=== PATIENT | female | born 1970 | race Hispanic/Latino ===

== ENCOUNTER 2018-01-27 14:56 | Emergency (ER) | payer MEDICAID, OTHER | END 2018-01-27 17:21 | disposition home or self-care (01) | LOC: EDH 14:56 | DX: K02.9 Dental caries, unspecified (principal); E11.9 Type 2 diabetes mellitus without complications; Z91.012 Allergy to eggs | CPT/HCPCS: 99281 ==

== ENCOUNTER 2020-09-23 14:16 | Emergency (ER) | payer OTHER ==
[2020-09-23 14:55] LABS: BASOPHILS % (AUTO) 0.3 % (0.0-5.0); EOSINOPHILS % (AUTO) 2.8 % (0.0-8.0); HEMATOCRIT 38.3 % (36-48); LYMPHOCYTES % (AUTO) 28.3 % (21.0-51.0); MEAN CORPUSCULAR HEMOGLOBIN 30.3 pg (27.0-33.0); MEAN CORPUSCULAR HGB CONC 32.9 g/dL (32.0-36.0); MEAN CORPUSCULAR VOLUME 92.1 fL (79-99); MONOCYTES % (AUTO) 5.9 % (3.0-13.0); NEUTROPHILS % (AUTO) 62.1 % (40.0-77.0); PLATELET COUNT (AUTO) 271 K/uL (130-400); RED BLOOD CELL COUNT(AUTO) 4.16 MIL/uL (4.00-5.50); RED CELL DISTRIBUTION WIDTH 13.6 % (11.0-15.5); WHITE BLOOD COUNT (AUTO) 7.1 K/uL (4.8-10.8)
[2020-09-23] MEDS ORDERED: ASPIRIN 325 MG TABLET ONE (14:56)
[2020-09-23 15:11] LABS: INR 0.92 (0.85-1.15); PROTHROMBIN TIME 9.9 SEC (9.6-11.6)
[2020-09-23 15:12] LABS: ALBUMIN 3.4 g/dL (3.5-5.0); CREATININE 1.1 mg/dL (0.5-1.5); POTASSIUM 4.6 mmol/L (3.5-5.1)
[2020-09-23 15:34] LABS: APPEARANCE,URINE Clear (CLEAR); BILIRUBIN,URINE Negative (NEGATIVE); COLOR,URINE Yellow (YELLOW); GLUCOSE, URINE (UA) >=1000 mg/dL (NEGATIVE); KETONES,URINE Negative (NEGATIVE); LEUKOCYTE ESTERASE ,URINE Trace (NEGATIVE); NITRATE,URINE Negative (NEGATIVE); OCCULT BLOOD,URINE Nonhemolyzed Trace (NEGATIVE); PH,URINE 6.5 (5.0-8.0); PROTEIN,URINE Negative (NEGATIVE)
[2020-09-23 15:37] LABS: BILIRUBIN,TOTAL 0.3 mg/dL (0.2-1.0); TOTAL PROTEIN, SERUM 7.3 g/dL (6.0-8.3)
[2020-09-23 16:04] LABS: BACTERIA,URINE Few /HPF (None Seen)
[2020-09-23 16:05] LABS: SQUAMOUS EPITHELIAL CELL,UR 0-2 /HPF (0-2)
[2020-09-23] MEDS ORDERED: SODIUM CHLORIDE 0.9% 1000ML 1,000 ML IV ONE (16:42)
== END 2020-09-23 18:46 | disposition home or self-care (01) ==
LOC: EDH 14:16
DX: E11.65 Type 2 diabetes mellitus with hyperglycemia (principal); R07.89 Other chest pain; E11.9 Type 2 diabetes mellitus without complications; Z91.012 Allergy to eggs
CPT/HCPCS: 36415; 71045; 80053; 81001; 82550; 82948; 84484; 85025; 85610; 85730; 93005; 96360; 99285; J7030

== ENCOUNTER 2022-01-17 21:47 | Emergency (ER) | payer MEDICAID, OTHER ==
[~2022-01-17] VITALS: Ht 160 cm; Wt 86.6 kg
[2022-01-17 22:17] LABS: BASOPHILS % (AUTO) 0.2 % (0.0-5.0); EOSINOPHILS % (AUTO) 2.1 % (0.0-8.0); HEMATOCRIT 36.8 % (36-48); LYMPHOCYTES % (AUTO) 22.7 % (21.0-51.0); MEAN CORPUSCULAR HEMOGLOBIN 30.1 pg (27.0-33.0); MEAN CORPUSCULAR VOLUME 88.7 fL (79-99); MONOCYTES % (AUTO) 6.4 % (3.0-13.0); NEUTROPHILS % (AUTO) 68.4 % (40.0-77.0); PLATELET COUNT (AUTO) 266 K/uL (130-400); RED BLOOD CELL COUNT(AUTO) 4.15 MIL/uL (4.00-5.50); RED CELL DISTRIBUTION WIDTH 13.5 % (11.0-15.5); WHITE BLOOD COUNT (AUTO) 8.1 K/uL (4.8-10.8)
[2022-01-17 22:30] LABS: CREATININE 0.7 mg/dL (0.5-1.5); POTASSIUM 3.9 mmol/L (3.5-5.1)
[2022-01-17 22:35] LABS: ALBUMIN 3.6 g/dL (3.5-5.0); BILIRUBIN,TOTAL 0.3 mg/dL (0.2-1.0); TOTAL PROTEIN, SERUM 7.9 g/dL (6.0-8.3)
[2022-01-17] MEDS ORDERED: D-ME1POW16 PO (22:39)
[2022-01-17] MEDS ORDERED: ACETAMINOPHEN 500 MG TABLET PO ONE (23:00)
[2022-01-17] MEDS ORDERED: 0.9%NACL 1000ML 1,000 ML IV SCH (23:00)
[2022-01-17] MEDS ORDERED: INSULIN HUMULIN R 100 UNIT/ML 3ML SQ ONE (23:00)
[2022-01-17 23:29] VITALS: BP 112/64
== END 2022-01-18 00:15 | disposition home or self-care (01) ==
LOC: EDH 21:47
DX: B34.9 Viral infection, unspecified (principal); E11.9 Type 2 diabetes mellitus without complications; E66.9 Obesity, unspecified; Z68.33 Body mass index [BMI] 33.0-33.9, adult; Z20.822 Contact with and (suspected) exposure to COVID-19; Z91.012 Allergy to eggs
CPT/HCPCS: 36415; 71045; 80053; 85025; 87635; 87804 ×2; 87880; 93005; 96360; 96372; 99285; C9803; J1815; J7030

== ENCOUNTER 2022-10-21 20:59 | Emergency (ER) | payer MEDICAID, OTHER ==
[~2022-10-21] VITALS: Ht 147.3 cm; Wt 87.5 kg
[~2022-10-21 20:59] MED LIST: D-ME1POW16 PO
[2022-10-21] MEDS ORDERED: CEPH500B PO (22:40)
[2022-10-21] MEDS ORDERED: SULF1TAB42 PO (22:40)
[2022-10-21 23:18] VITALS: BP 119/70
== END 2022-10-21 23:20 | disposition home or self-care (01) ==
LOC: EDH 21:20
DX: L02.411 Cutaneous abscess of right axilla (principal); E11.9 Type 2 diabetes mellitus without complications; E66.9 Obesity, unspecified; Z98.890 Other specified postprocedural states; Z91.012 Allergy to eggs
CPT/HCPCS: 10060

== ENCOUNTER 2023-11-15 15:24 | Emergency (ER) | payer MEDICAID, OTHER ==
[~2023-11-15] VITALS: Ht 160 cm; Wt 73.0 kg
[~2023-11-15 15:24] MED LIST changes: +CEPH500B PO; +SULF1TAB42 PO
[2023-11-15 16:31] LABS: BASOPHILS # (AUTO) 0.02 K/uL (0.00-0.20); BASOPHILS % (AUTO) 0.3 % (0.0-5.0); EOSINOPHILS # (AUTO) 0.03 K/uL (0.00-0.70); EOSINOPHILS % (AUTO) 0.4 % (0.0-8.0); IMMATURE GRANULOCYTE ABSOLUTE 0.04 K/uL (0-1); MEAN CORPUSCULAR HEMOGLOBIN 28.9 pg (27.0-33.0); MEAN CORPUSCULAR HGB CONC 33.2 g/dL (32.0-36.0); MEAN CORPUSCULAR VOLUME 87.1 fL (79-99); MONOCYTES # (AUTO) 0.2 K/uL (0.1-1.0); MONOCYTES % (AUTO) 2.5 % (3.0-13.0); NEUTROPHILS # (AUTO) 6.1 K/uL (1.8-7.7); NEUTROPHILS % (AUTO) 83.3 % (40.0-77.0); PLATELET COUNT (AUTO) 246 K/uL (130-400); RED BLOOD CELL COUNT(AUTO) 4.25 MIL/uL (4.00-5.50); RED CELL DISTRIBUTION WIDTH 13.4 % (11.0-15.5); WHITE BLOOD COUNT (AUTO) 7.3 K/uL (4.8-10.8)
[2023-11-15 16:37] LABS: ADD UA MICROSCOPIC YES; APPEARANCE,URINE CLEAR (CLEAR); BILIRUBIN,URINE NEGATIVE (NEGATIVE); COLOR,URINE LIGHT-YELLOW (YELLOW); GLUCOSE, URINE (UA) >=1000 mg/dL (NEGATIVE); KETONES,URINE 20 mg/dL (NEGATIVE); LEUKOCYTE ESTERASE ,URINE NEGATIVE Leu/uL (NEGATIVE); NITRATE,URINE 2+ (NEGATIVE); OCCULT BLOOD,URINE NEGATIVE (NEGATIVE); PH,URINE 5.5 (5.0-8.0); PROTEIN,URINE NEGATIVE (NEGATIVE); UROBILINOGEN,URINE 0.2 mg/dL (0.2-1.0)
[2023-11-15 16:40] LABS: BACTERIA,URINE FEW /HPF (None Seen); MUCUS,URINE FEW LPF (None Seen); RBC,URINE 0-1 /HPF (0-1); SQUAMOUS EPITHELIAL CELL,UR FEW /HPF (0-2)
[2023-11-15 16:47] LABS: ALBUMIN 3.6 g/dL (3.5-5.0); BILIRUBIN,TOTAL 0.4 mg/dL (0.2-1.0); CREATININE 0.7 mg/dL (0.5-1.5); POTASSIUM 4.4 mmol/L (3.5-5.1); TOTAL PROTEIN, SERUM 7.7 g/dL (6.0-8.3)
[2023-11-15] MEDS: 0.9%NACL 1000ML 1,000 ML IV ONE ×2 (18:18→19:32)
[2023-11-15] MEDS: CEFTRIAXONE 1G VIAL IVPB SCH (19:32)
[2023-11-15] MEDS: INSULIN HUMULIN R 100 UNIT/ML 3ML IV ONE (19:32)
[2023-11-15] MEDS: KETOROLAC 15MG/ML VIAL (15MG/ML) IV ONE (19:32)
[2023-11-15] MEDS ORDERED: LIDOP TP (22:28)
[2023-11-15] MEDS ORDERED: CYCL-309 PO (22:28)
[2023-11-15] MEDS ORDERED: MACR100 PO (22:28)
[2023-11-15] MEDS ORDERED: IBUP-2077 PO (22:28)
[2023-11-15 22:52] VITALS: BP 132/54; PULSE 70; RESP 14; O2SAT 97
== END 2023-11-15 23:28 | disposition home or self-care (01) ==
LOC: EDH 15:24
DX: N39.0 Urinary tract infection, site not specified (principal); M54.32 Sciatica, left side; E11.65 Type 2 diabetes mellitus with hyperglycemia; I10 Essential (primary) hypertension; E78.00 Pure hypercholesterolemia, unspecified; Z79.899 Other long term (current) drug therapy; Z91.012 Allergy to eggs
CPT/HCPCS: 99285; 96365; 96375; 96361; 84484; 80053; 85025; 87077; 87088; 87186; 82948 ×3; 82010; 81001; 36415; 93005; J1815; J7030; J0696; J1885

== ENCOUNTER 2024-05-26 11:20 | Emergency (ER) | payer BC ==
[~2024-05-26] VITALS: Ht 160 cm; Wt 82.6 kg
[~2024-05-26 11:20] MED LIST changes: +CYCL-309 PO; +IBUP-2077 PO; +LIDOP TP; +MACR100 PO
[2024-05-26 12:46] LABS: BASOPHILS # (AUTO) 0.02 K/uL (0.00-0.20); BASOPHILS % (AUTO) 0.4 % (0.0-5.0); EOSINOPHILS # (AUTO) 0.29 K/uL (0.00-0.70); EOSINOPHILS % (AUTO) 5.2 % (0.0-8.0); HEMATOCRIT 37.9 % (36-48); IMMATURE GRANULOCYTE ABSOLUTE 0.03 K/uL (0-1); LYMPHOCYTES # (AUTO) 1.8 K/uL (1.0-4.8); LYMPHOCYTES % (AUTO) 31.3 % (21.0-51.0); MEAN CORPUSCULAR HEMOGLOBIN 28.8 pg (27.0-33.0); MEAN CORPUSCULAR HGB CONC 32.5 g/dL (32.0-36.0); MEAN CORPUSCULAR VOLUME 88.8 fL (79-99); MONOCYTES # (AUTO) 0.4 K/uL (0.1-1.0); MONOCYTES % (AUTO) 6.8 % (3.0-13.0); NEUTROPHILS # (AUTO) 3.1 K/uL (1.8-7.7); NEUTROPHILS % (AUTO) 55.8 % (40.0-77.0); PLATELET COUNT (AUTO) 321 K/uL (130-400); RED BLOOD CELL COUNT(AUTO) 4.27 MIL/uL (4.00-5.50); RED CELL DISTRIBUTION WIDTH 13.7 % (11.0-15.5); WHITE BLOOD COUNT (AUTO) 5.6 K/uL (4.8-10.8)
[2024-05-26 13:04] LABS: CREATININE 0.6 mg/dL (0.5-1.0); POTASSIUM 4.8 mmol/L (3.5-5.1)
[2024-05-26 13:08] LABS: ALBUMIN 3.4 g/dL (3.5-5.0); BILIRUBIN,TOTAL 0.3 mg/dL (0.2-1.0); TOTAL PROTEIN, SERUM 7.8 g/dL (6.0-8.3)
[2024-05-26] MEDS: ONDANSETRON 4MG INJ IVP ONE (14:48)
[2024-05-26] MEDS: 0.9%NACL 1000ML 1,000 ML IV ONE (14:48)
[2024-05-26] MEDS: KETOROLAC 30MG VIAL (30MG/ML) IVP ONE (14:49)
[2024-05-26] MEDS ORDERED: IOHEXOL 350 MG/ML 100ML INFUS..BTL IV ONE (15:17)
[2024-05-26] MEDS ORDERED: CLIN-141 PO (16:35)
[2024-05-26] MEDS ORDERED: IBUP-2077 PO (16:35)
[2024-05-26 17:16] VITALS: BP 147/71; PULSE 89; RESP 18; O2SAT 94
== END 2024-05-26 17:17 | disposition home or self-care (01) ==
LOC: EDH 11:20
DX: L03.311 Cellulitis of abdominal wall (principal); G89.18 Other acute postprocedural pain; R10.31 Right lower quadrant pain; E11.9 Type 2 diabetes mellitus without complications; E66.9 Obesity, unspecified; Z79.899 Other long term (current) drug therapy; Z91.012 Allergy to eggs; Z90.49 Acquired absence of other specified parts of digestive tract
CPT/HCPCS: 99284; 74177; 96374; 96375; 80053; 83690; 85025; 36415; J7030; J2405; J1885; Q9967

== ENCOUNTER 2024-10-02 18:09 | Emergency (ER) | payer SELFPAY ==
[~2024-10-02] VITALS: Ht 160 cm; Wt 81.6 kg
[~2024-10-02 18:09] MED LIST changes: +CLIN-141 PO
[2024-10-02 18:10] VITALS: BP 103/71; PULSE 83; RESP 20; TEMP 98.8
--- NOTE | 2024-10-02 18:52 | EKG ---
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
[2024-10-02 19:13] LABS: APPEARANCE,URINE CLEAR (CLEAR); BILIRUBIN,URINE NEGATIVE (NEGATIVE); COLOR,URINE LIGHT-YELLOW (YELLOW); GLUCOSE, URINE (UA) 300 mg/dL (NEGATIVE); KETONES,URINE NEGATIVE (NEGATIVE); LEUKOCYTE ESTERASE ,URINE NEGATIVE Leu/uL (NEGATIVE); NITRATE,URINE NEGATIVE (NEGATIVE); OCCULT BLOOD,URINE NEGATIVE (NEGATIVE); PH,URINE 6.5 (5.0-8.0); PROTEIN,URINE NEGATIVE (NEGATIVE)
[2024-10-02 19:18] LABS: BASOPHILS # (AUTO) 0.03 K/uL (0.00-0.20); BASOPHILS % (AUTO) 0.3 % (0.0-5.0); EOSINOPHILS # (AUTO) 0.55 K/uL (0.00-0.70); EOSINOPHILS % (AUTO) 6.3 % (0.0-8.0); HEMATOCRIT 33.3 % (36-48); IMMATURE GRANULOCYTE ABSOLUTE 0.04 K/uL (0-1); LYMPHOCYTES # (AUTO) 2.4 K/uL (1.0-4.8); LYMPHOCYTES % (AUTO) 27.4 % (21.0-51.0); MEAN CORPUSCULAR HEMOGLOBIN 29.2 pg (27.0-33.0); MEAN CORPUSCULAR HGB CONC 33.3 g/dL (32.0-36.0); MEAN CORPUSCULAR VOLUME 87.6 fL (79-99); MONOCYTES # (AUTO) 0.5 K/uL (0.1-1.0); MONOCYTES % (AUTO) 5.7 % (3.0-13.0); NEUTROPHILS # (AUTO) 5.3 K/uL (1.8-7.7); NEUTROPHILS % (AUTO) 59.8 % (40.0-77.0); PLATELET COUNT (AUTO) 271 K/uL (130-400); RED CELL DISTRIBUTION WIDTH 13.3 % (11.0-15.5); WHITE BLOOD COUNT (AUTO) 8.8 K/uL (4.8-10.8)
[2024-10-02 19:18] LABS: ADD UA MICROSCOPIC YES
[2024-10-02 19:23] LABS: BACTERIA,URINE FEW /HPF (None Seen); RBC,URINE 0-1 /HPF (0-1); SQUAMOUS EPITHELIAL CELL,UR RARE /HPF (0-2)
[2024-10-02 19:27] LABS: CARBON DIOXIDE 30 mmol/L (21-32); CHLORIDE 101 mmol/L (101-111); CREATININE 0.6 mg/dL (0.5-1.0); GLOMERULAR FILTR. RATE CALC 107 mL/min (>90); GLUCOSE,RANDOM 212 mg/dL (70-105); POTASSIUM 4.1 mmol/L (3.5-5.1); SODIUM SERUM 139 mmol/L (136-145); UREA NITROGEN, BLOOD 9 mg/dL (7-18)
[2024-10-02 19:31] LABS: ALANINE AMINOTRANSFERASE 29 U/L (12-78); ALBUMIN 3.3 g/dL (3.5-5.0); ASPARTATE AMINOTRANSFERASE 28 U/L (10-37); BILIRUBIN,DIRECT < 0.1 mg/dL (0.0-0.3); BILIRUBIN,TOTAL 0.2 mg/dL (0.2-1.0); TOTAL PROTEIN, SERUM 7.2 g/dL (6.0-8.3)
--- NOTE | 2024-10-02 20:58 | NUR ---
CT EXAM PENDING, PT IN LOBBY, NO IV, NO CONSENT
[2024-10-02] MEDS: ondanSETRON 4MG INJ IVP ONE (21:43)
[2024-10-02] MEDS: morPHINE 2 MG SYG IVP ONE (21:43)
[2024-10-02] MEDS ORDERED: IOHEXOL-350 75 ML VIAL IV ONE (21:58)
--- NOTE | 2024-10-02 22:26 | HMCIMG ---
CT ABDOMEN/PELVIS W/CONTRAST HISTORY: Abdominal pain COMPARISON: 05/26/2024 TECHNIQUE: Multiple sequential axial images of the abdomen and pelvis were obtained from the dome of the diaphragm through symphysis pubis. Patient was given 75 cc of Omnipaque through intravenous route. Oral contrast was not given. FINDINGS: No pleural effusion is seen bilaterally. There is no evidence of parenchymal disease or pulmonary nodule of the visualized lower lungs. Degenerative changes of the thoracolumbar spine are present. The heart is not enlarged. Liver is enlarged with fatty changes measuring 17 cm. Gallstones are seen in the gallbladder. The liver, spleen, adrenal glands and pancreas are unremarkable. There is no evidence of hydronephrosis bilaterally. No evidence of renal stone is seen. Fecal material is seen in the colon. There are normal size retroperitoneal and mesenteric lymph nodes. No ascites is seen. Appendix is not seen consistent with patient history of appendectomy.. There is diverticulosis. There are fluid-filled small bowel loops may be related to enteritis. Pelvic sidewalls are symmetric bilaterally. Bladder is well distended without wall thickening. IMPRESSION: 1. Fluid-filled small bowel loops may be related to enteritis. Gallstones in the gallbladder. CT was performed with one or more following dose reduction techniques: automated exposure control, adjustment of the mA and kv according to patient's size, or use of a iterative reconstruction technique.
[2024-10-02] MEDS ORDERED: METR-172 PO (22:44)
--- NOTE | 2024-10-02 22:45 | ERN ---
General Chief Complaint: Abdominal Pain Stated Complaint: ABDOMINAL PAIN Time Seen by MD: 18:19 Time Seen by Midlevel: 18:19 Source: patient History of Present Illness Initial Comments Patient is a 54-year-old female presenting to the emergency department with diffuse abdominal pain that has been ongoing for the last week. Patient states one of her family members have been sick with the GI bug. No fever, chills, or any other symptoms reported at this time. Allergies: Coded Allergies: egg (Unverified Allergy, Unknown, 09/08/15) VOMITS Home Meds Active Scripts Metronidazole (Metronidazole) 500 Mg Tablet, 1 TAB PO BID for 7 Days, #14 TAB 0 Refills Prov:CONNER NUÑEZ 10/02/24 Ibuprofen (Ibuprofen 800 mg Tab) 800 Mg Tab, 800 MG PO Q8H PRN for fever or pain, #30 TAB 0 Refills Prov:IDALIA FERGUSON NP 05/26/24 Clindamycin HCl (Clindamycin HCl) 300 Mg Capsule, 1 CAP PO QID for 10 Days, #40 CAP 0 Refills Prov:IDALIA FERGUSON NP 05/26/24 Lidocaine (Lidoderm Patch 5%) 5 % Patch, 1 PATCH TP DAILY for pain for 7 Days, #7 ADH.PATCH 1 Refill 12 hours on/12 hours off localized area of pain Prov:HECTOR DANIEL 11/15/23 Cyclobenzaprine HCl (Cyclobenzaprine HCl) 10 Mg Tablet, 10 MG PO HS PRN for MUSCLE SPASMS, #7 TAB Prov:HECTOR DANIEL 11/15/23 Ibuprofen (Ibuprofen 800 mg Tab) 800 Mg Tab, 800 MG PO Q8H PRN for fever or pain for 7 Days, #12 TAB 0 Refills Prov:HECTOR DANIEL 11/15/23 Nitrofurantoin/Nitrofuran Mac (Macrobid) 100 Mg Cap, 1 CAP PO BID for 7 Days, #14 CAP 0 Refills Prov:HECTOR DANIEL 11/15/23 Sulfamethoxazole/Trimethoprim (Bactrim Ds Tablet) 1 Each Tablet, 1 TAB PO BID for 7 Days, #14 TAB 0 Refills Prov:RAQUEL GOVEA 10/21/22 Cephalexin Monohydrate (Keflex) 500 Mg Cap, 500 MG PO QID for 7 Days, #28 CAP Prov:RAQUEL GOVEAP 10/21/22 D-Methorphan/PE/Acetaminophen (Theraflu Ms Severe Cold Pckt) 1 Each Powd.pack, 1 EACH PO QIDP, #20 PACK Prov:CAMMY COLEMAN 01/17/22 Past Medical History Past Medical History: Diabetes-Type II Medical History Other: Obesity Past Surgical History: Appendectomy Family History Family History: Negative Social History Social History: Negative Female( History) History: Not Applicable ROS Dictation CONSTITUTIONAL: Negative except for HPI HEAD/FACE: Negative except for HPI EENT: Negative except for HPI RESPIRATORY: Negative except for HPI GASTROINTESTINAL/ABDOMINAL: Negative except for HPI GENITOURINARY: Negative except for HPI MUSCULOSKELETAL: Negative except for HPI INTEGUMENTARY: Negative except for HPI NEUROLOGICAL/PSYCH: Negative except for HPI HEMATOLOGIC/LYMPHATIC: Negative except for HPI All Systems Negative, Except as noted above. 13 point review of systems assessed and all negative except for above. Physical Exam Physical Exam Dictation Vital Signs reviewed General Appearance: Alert, oriented x 3, no acute distress, well developed, nourished. Head and Face: non-traumatic. Eyes: PERRL, pink conjunctivas, eyelid no trauma, anterior chamber with arcus senilis. Ears: Pinnas intact and no signs of trauma or erythema ear canals clear and no discharge TM no erythema Nose: No discharge, no bleeding. Oropharynx: Mouth normal, tongue pink, pharynx clear,no erythema, tonsils no exudates, no abscesses noted, mucous membrane moist Neck: Supple, non-tender, no thyromegaly, no masses, no JVD, no bruits Breast:Deferred Chest:No tenderness, no crepitus, no paradoxical movement, no retractions Lungs:Clear, well-ventilated, symmetric, no rales, no wheezing, no rhonchi, no stridor, good breath sounds bilaterally Heart: Regular rate, regular rhythm, no murmur, no gallops Vascular: no peripheral edema, Abdomen: Soft, positive bowel sounds, nondistended, no guarding, Diffuse abdominal tenderness, no rebound, no masses no hepatomegaly, no splenomegaly, no Cheney's sign, no hernias. Rectal: Deferred Genital: Deferred Neurological: Normal speech, motor function intact, sensory function intact Musculoskeletal: Neck nontender, full range of motion, back nontender, full range of motion, Extremities: nontender, full range of motion Skin: Color pink, dry, no turgor, no rash, no lacerations, no abrasions, no contusions. Lymphatic: Deferred Results Laboratory and Microbiology Lab and Micro Result Laboratory Tests Test 10/02/24 18:53 10/02/24 19:10 Urine Color LIGHT-YELLOW (YELLOW) Urine Appearance CLEAR (CLEAR) Urine pH 6.5 (5.0-8.0) Urine Specific [place] 1.017 (1.001-1.031) Urine Protein NEGATIVE mg/dL (NEGATIVE) Urine Glucose (UA) 300 mg/dL (NEGATIVE) H Urine Ketones NEGATIVE mg/dL (NEGATIVE) Urine Occult Blood NEGATIVE (NEGATIVE) Urine Nitrate NEGATIVE (NEGATIVE) Urine Bilirubin NEGATIVE mg/dL (NEGATIVE) Urine Urobilinogen 2.0 mg/dL (0.2-1.0) H Urine Leukocyte Esterase NEGATIVE Khanh/uL Urine RBC 0-1 /HPF (0-1) Urine WBC 2-5 /HPF (0-1) H Urine Squamous Epithelial Cells RARE /HPF (0-2) Urine Bacteria FEW /HPF (None Seen) White Blood Count 8.8 K/uL (4.8-10.8) Red Blood Count 3.80 MIL/uL (4.00-5.50) L Hemoglobin 11.1 g/dL (12.0-16.0) L Hematocrit 33.3 % (36-48) L Mean Corpuscular Volume 87.6 fL (79-99) Mean Corpuscular Hemoglobin 29.2 pg (27.0-33.0) Mean Corpuscular Hemoglobin Concent 33.3 g/dL (32.0-36.0) Red Cell Distribution Width 13.3 % (11.0-15.5) Platelet Count 271 K/uL (130-400) Mean Platelet Volume 10.9 fL (7.5-10.5) H Immature Granulocyte % (Auto) 0.5 % (0-1) Neutrophils (%) (Auto) 59.8 % (40.0-77.0) Lymphocytes (%) (Auto) 27.4 % (21.0-51.0) Monocytes (%) (Auto) 5.7 % (3.0-13.0) Eosinophils (%) (Auto) 6.3 % (0.0-8.0) Basophils (%) (Auto) 0.3 % (0.0-5.0) Neutrophils # (Auto) 5.3 K/uL (1.8-7.7) Lymphocytes # (Auto) 2.4 K/uL (1.0-4.8) Monocytes # (Auto) 0.5 K/uL (0.1-1.0) Eosinophils # (Auto) 0.55 K/uL (0.00-0.70) Basophils # (Auto) 0.03 K/uL (0.00-0.20) Absolute Immature Granulocyte (auto 0.04 K/uL (0-1) Nucleated Red Blood Cells 0.0 % (0.0-0.19) Sodium Level 139 mmol/L (136-145) Potassium Level 4.1 mmol/L (3.5-5.1) Chloride Level 101 mmol/L (101-111) Carbon Dioxide Level 30 mmol/L (21-32) Blood Urea Nitrogen 9 mg/dL (7-18) Creatinine 0.6 mg/dL (0.5-1.0) Glomerular Filtration Rate Calc 107 mL/min (>90) Random Glucose 212 mg/dL (70-105) H Total Calcium 9.3 mg/dL (8.5-10.1) Total Bilirubin 0.2 mg/dL (0.2-1.0) Direct Bilirubin < 0.1 mg/dL (0.0-0.3) Aspartate Amino Transf (AST/SGOT) 28 U/L (10-37) Alanine Aminotransferase (ALT/SGPT) 29 U/L (12-78) Alkaline Phosphatase 100 U/L (50-136) Total Protein 7.2 g/dL (6.0-8.3) Albumin 3.3 g/dL (3.5-5.0) L Lipase 36 U/L (16-77) Labs Reviewed?: Yes MDM MDM: Differential diagnosis: There are no social concerns with this patient. Prescription drug management Prescriptions will include: Medical management and examination interpretation discussions were had by me with other qualified healthcare professionals as indicated for the patient's care. ED Course Orders Procedure Category Date Status Time Vital Signs Per CPOE 10/02/24 Transmitted Routine 18:14 Saline Lock Iv CPOE 10/02/24 Transmitted 18:14 Cbc With Differential LAB 10/02/24 Complete 18:14 Lipase LAB 10/02/24 Complete 18:14 Urinalysis Profile LAB 10/02/24 Complete 18:14 12 Lead Ekg Tracing- EKG 10/02/24 Complete Technical 18:14 Basic Metabolic Panel LAB 10/02/24 Complete 18:14 Hepatic Function Panel LAB 10/02/24 Complete 19:10 Ct Abdomen/Pelvis CT 10/02/24 Resulted W/Contrast 20:06 Morphine 2mg Syg PHA 10/02/24 Complete (Morphine 2mg Syg) 20:30 Ondansetron 4mg Inj PHA 10/02/24 Complete (Zofran 4mg Inj) 20:30 Iohexol (Omnipaque) PHA 10/02/24 Complete 21:58 Ketorolac PHA 10/02/24 In Process Tromethamine 15mg/Ml 23:00 Ceftriaxone 1g Vial PHA 10/02/24 In Process (Rocephine 1g Inj) 23:00 Current Medications Medications (Trade) Dose Ordered Sig/Dwight Route PRN Reason Start Time Stop Time Status Last Admin Dose Admin Ceftriaxone Sodium (ROCEphine 1G INJ) 1 gm ONCE ONCE IVPB 10/02/24 23:00 10/02/24 23:01 Iohexol (Omnipaque) 75 ml STK-MED ONCE IV 10/02/24 21:58 10/02/24 21:59 DC Ketorolac Tromethamine (toRADol) 15 mg ONCE ONCE IV 10/02/24 23:00 10/02/24 23:01 Morphine Sulfate (morPHINE 2MG SYG) 2 mg ONCE ONCE IVP 10/02/24 20:30 10/02/24 20:31 DC 10/02/24 21:43 Ondansetron HCl (zoFRAN 4MG INJ) 4 mg ONCE ONCE IVP 10/02/24 20:30 10/02/24 20:31 DC 10/02/24 21:43 Vital Signs Date Time Temp Pulse Resp B/P (MAP) Pulse Ox O2 Delivery O2 Flow Rate FiO2 10/02/24 18:10 98.8 83 20 103/71 Room Air 0 [facility] [address] [place] [id number] IMAGING REPORT Signed PATIENT: ISELA RAMOS MR#: [id number] : 1970 SEX: F AGE: 54 LOCATION: [facility] ORDER 06 STATUS: REG ER REPORT#: [id number] SERVICE 05 REASON: right sided abd pain r/o obstruction ORDERING PHYSICIAN: CONNER NUÑEZ PROCEDURE: ABD PEL W - CT ABDOMEN/PELVIS W/CONTRAST CT ABDOMEN/PELVIS W/CONTRAST HISTORY: Abdominal pain COMPARISON: 05/26/2024 TECHNIQUE: Multiple sequential axial images of the abdomen and pelvis were obtained from the dome of the diaphragm through symphysis pubis. Patient was given 75 cc of Omnipaque through intravenous route. Oral contrast was not given. FINDINGS: No pleural effusion is seen bilaterally. There is no evidence of parenchymal disease or pulmonary nodule of the visualized lower lungs. Degenerative changes of the thoracolumbar spine are present. The heart is not enlarged. Liver is enlarged with fatty changes measuring 17 cm. Gallstones are seen in the gallbladder. The liver, spleen, adrenal glands and pancreas are unremarkable. There is no evidence of hydronephrosis bilaterally. No evidence of renal stone is seen. Fecal material is seen in the colon. There are normal size retroperitoneal and mesenteric lymph nodes. No ascites is seen. Appendix is not seen consistent with patient history of appendectomy.. There is diverticulosis. There are fluid-filled small bowel loops may be related to enteritis. Pelvic sidewalls are symmetric bilaterally. Bladder is well distended without wall thickening. IMPRESSION: 1. Fluid-filled small bowel loops may be related to enteritis. Gallstones in the gallbladder. CT was performed with one or more following dose reduction techniques: automated exposure control, adjustment of the mA and kv according to patient's size, or use of a iterative reconstruction technique. DICTATED BY: ROBYN ZIEGLER MD DATE: 10/02/242218 ELECTRONICALLY SIGNED BY: ROBYN ZIEGLER MD DATE: 10/02/242225 DX & DISP Disposition: Discharge Departure Impression: Primary Impression: Enteritis Condition: Stable Scripts Metronidazole (Metronidazole) 500 Mg Tablet 1 TAB PO BID for 7 Days, #14 TAB 0 Refills Prov: CONNER NUÑEZ 10/02/24 Referrals: KELLI BARNES (PCP) I have reviewed the case, and I agree with, Diagnosis and Plan I performed the substantive portion of the visit. I have reviewed and personally made and approve the management plan that is documented in the note by myself or the PA. I acknowledge for responsibility for the patient's management plan. CONNER NUÑEZ Oct 02, 2024 22:45
[2024-10-02] MEDS: cefTRIAXone 1G VIAL IVPB ONE (23:27)
[2024-10-02] MEDS: ketOROlac 15MG/ML VIAL (15MG/ML) IV ONE (23:28)
== END 2024-10-02 23:56 | disposition home or self-care (01) ==
LOC: EDH 18:09
DX: K52.9 Noninfective gastroenteritis and colitis, unspecified (principal); E11.9 Type 2 diabetes mellitus without complications; E66.9 Obesity, unspecified; Z79.899 Other long term (current) drug therapy; Z90.49 Acquired absence of other specified parts of digestive tract; Z91.012 Allergy to eggs
CPT/HCPCS: 99285; 74177; 96374; 96375; 80076; 80048; 83690; 85025; 81001; 36415; 93005; J2270; J0696; J2405; J1885; Q9967

== ENCOUNTER 2025-01-05 19:24 | Emergency (ER) | payer SELFPAY ==
[~2025-01-05] VITALS: Ht 160 cm; Wt 82.1 kg
[~2025-01-05 19:24] MED LIST changes: +METR-172 PO
--- NOTE | 2025-01-05 20:04 | ERN ---
ED Note History of Present Illness Stated Complaint: SOB,PELVIC PAIN Chief Complaint: Pelvic Pain Time Seen by MD: 19:25 Time Seen by Midlevel: 19:25 Dictation: The patient is a 54-year-old female with a history of diabetes, gallstones who presents to the emergency department with complaints of right upper abdominal pain associated with nausea nonbloody vomiting onset 11:00 a.m. today. Patient denies any diarrhea or constipation. Denies any fevers. Patient also reported she developed a rash on December 31 two her bilateral lower legs and now has it on her right upper arm. Reports itchiness. Allergies: Coded Allergies: egg (Unverified Allergy, Unknown, 09/08/15) VOMITS Home Meds Active Scripts Metronidazole (Metronidazole) 500 Mg Tablet, 1 TAB PO BID for 7 Days, #14 TAB 0 Refills Prov:CONNER NUÑEZ 10/02/24 Ibuprofen (Ibuprofen 800 mg Tab) 800 Mg Tab, 800 MG PO Q8H PRN for fever or pain, #30 TAB 0 Refills Prov:IDALIA FERGUSON NP 05/26/24 Clindamycin HCl (Clindamycin HCl) 300 Mg Capsule, 1 CAP PO QID for 10 Days, #40 CAP 0 Refills Prov:IDALIA FERGUSON NP 05/26/24 Lidocaine (Lidoderm Patch 5%) 5 % Patch, 1 PATCH TP DAILY for pain for 7 Days, #7 ADH.PATCH 1 Refill 12 hours on/12 hours off localized area of pain Prov:HECTOR DANIEL 11/15/23 Cyclobenzaprine HCl (Cyclobenzaprine HCl) 10 Mg Tablet, 10 MG PO HS PRN for MUSCLE SPASMS, #7 TAB Prov:HECTOR DANIEL 11/15/23 Ibuprofen (Ibuprofen 800 mg Tab) 800 Mg Tab, 800 MG PO Q8H PRN for fever or pain for 7 Days, #12 TAB 0 Refills Prov:HECTOR DANIEL 11/15/23 Nitrofurantoin/Nitrofuran Mac (Macrobid) 100 Mg Cap, 1 CAP PO BID for 7 Days, #14 CAP 0 Refills Prov:HECTOR DANIEL 11/15/23 Sulfamethoxazole/Trimethoprim (Bactrim Ds Tablet) 1 Each Tablet, 1 TAB PO BID for 7 Days, #14 TAB 0 Refills Prov:RAQUEL GOVEA 10/21/22 Cephalexin Monohydrate (Keflex) 500 Mg Cap, 500 MG PO QID for 7 Days, #28 CAP Prov:RAQUEL GOVEA V LIVE IN HOUSEKEEPER NANNY 10/21/22 D-Methorphan/PE/Acetaminophen (Theraflu Ms Severe Cold Pckt) 1 Each Powd.pack, 1 EACH PO QIDP, #20 PACK Prov:CAMMY COLEMAN 01/17/22 Past Medical History Past Medical History: Diabetes-Type II, Other Additional Past Medical Hx: NEUROPATHY Surgical History: Appendectomy Family History: Negative Social History: Negative History: Not Applicable RN Note Reviewed/Agreed w/PFSH: Yes Review of System Dictation Constitutional: Negative for fever,chills, and weight loss Eyes: Negative for injury, pain,redness, and discharge ENT: Negative for injury,pain or swelling Cardiovascular: Negative for chest pain, palpitations, and edema Respiratory: Negative for shortness of breath, cough, and wheezing, Abdomen/GI: Negative for diarrhea, and constipation positive for abdominal pain, nausea, vomiting Back: Negative for injury and pain : Negative for injury, bleeding and discharge MS/Extremity: Negative for injury and deformity Skin: Negative for rash, and discoloration Neuro: Negative for headache, weakness, numbness, tingling, and seizure Psych: Negative for suicide ideation, homicidal ideation, and hallucinations Initial Vital Sign VS Vital Signs Date Time Temp Pulse Resp B/P (MAP) Pulse Ox O2 Delivery O2 Flow Rate FiO2 01/05/25 19:56 97.5 85 20 106/73 97 Room Air 01/05/25 21:11 0 21 Physical Exam Dictation Vital Signs reviewed General Appearance: Alert, oriented x 3, no acute distress, well developed, nourished. Head and Face: non-traumatic. Eyes: PERRL, pink conjunctivas, eyelid no trauma, anterior chamber with arcus senilis. Ears: Pinnas intact and no signs of trauma or erythema ear canals clear and no discharge TM no erythema Nose: No discharge, no bleeding. Oropharynx: Mouth normal, tongue pink. pharynx clear,no erythema, tonsils no exudates, no abscesses noted, mucous membrane moist Neck: Supple, non-tender, no thyromegaly, no masses, no JVD, no bruits Breast:Deferred Chest:No tenderness, no crepitus, no paradoxical movement, no retractions Lungs:Clear, well-ventilated, symmetric, no rales, no wheezing, no rhonchi, no stridor, good breath sounds bilaterally Heart: Regular rate, regular rhythm, no murmur, no gallops Vascular: no peripheral edema, Abdomen: Soft, positive bowel sounds, nondistended, no guarding, Right upper tenderness to palpation, no rebound, no masses no hepatomegaly, no splenomegaly, no Cheney's sign, no hernias. Rectal: Deferred Genital: Deferred Neurological: Normal speech, motor function intact, sensory function intact Musculoskeletal: Neck nontender, full range of motion, back nontender, full range of motion, Extremities: nontender, full range of motion Skin: Color pink, dry, no turgor, , no lacerations, no abrasions, no contusions. Localized erythematous papules noted to bilateral lower legs, upper shoulder, no drainage, non vesicle Lymphatic: Deferred Results (Laboratory/Radiology) Laboratory/Radiology Laboratory Tests Test 01/05/25 20:10 01/05/25 20:26 Urine Color LIGHT-YELLOW (YELLOW) Urine Appearance CLEAR (CLEAR) Urine pH 6.5 (5.0-8.0) Urine Specific [place] 1.022 (1.001-1.031) Urine Protein NEGATIVE mg/dL (NEGATIVE) Urine Glucose (UA) >=1000 mg/dL (NEGATIVE) H Urine Ketones NEGATIVE mg/dL (NEGATIVE) Urine Occult Blood NEGATIVE (NEGATIVE) Urine Nitrate 2+ (NEGATIVE) H Urine Bilirubin NEGATIVE mg/dL (NEGATIVE) Urine Urobilinogen 4.0 mg/dL (0.2-1.0) H Urine Leukocyte Esterase 75 Khanh/uL (NEGATIVE) H Urine RBC 0-1 /HPF (0-1) Urine WBC 11-25 /HPF (0-1) H Urine Squamous Epithelial Cells RARE /HPF (0-2) Urine Bacteria None /HPF (None Seen) White Blood Count 8.4 K/uL (4.8-10.8) Red Blood Count 4.06 MIL/uL (4.00-5.50) Hemoglobin 11.8 g/dL (12.0-16.0) L Hematocrit 36.7 % (36-48) Mean Corpuscular Volume 90.4 fL (79-99) Mean Corpuscular Hemoglobin 29.1 pg (27.0-33.0) Mean Corpuscular Hemoglobin Concent 32.2 g/dL (32.0-36.0) Red Cell Distribution Width 13.8 % (11.0-15.5) Platelet Count 281 K/uL (130-400) Mean Platelet Volume 11.1 fL (7.5-10.5) H Immature Granulocyte % (Auto) 0.4 % (0-1) Neutrophils (%) (Auto) 63.2 % (40.0-77.0) Lymphocytes (%) (Auto) 25.7 % (21.0-51.0) Monocytes (%) (Auto) 5.7 % (3.0-13.0) Eosinophils (%) (Auto) 4.8 % (0.0-8.0) Basophils (%) (Auto) 0.2 % (0.0-5.0) Neutrophils # (Auto) 5.3 K/uL (1.8-7.7) Lymphocytes # (Auto) 2.2 K/uL (1.0-4.8) Monocytes # (Auto) 0.5 K/uL (0.1-1.0) Eosinophils # (Auto) 0.40 K/uL (0.00-0.70) Basophils # (Auto) 0.02 K/uL (0.00-0.20) Absolute Immature Granulocyte (auto 0.03 K/uL (0-1) Nucleated Red Blood Cells 0.0 % (0.0-0.19) Sodium Level 136 mmol/L (136-145) Potassium Level 4.2 mmol/L (3.5-5.1) Chloride Level 97 mmol/L (101-111) L Carbon Dioxide Level 32 mmol/L (21-32) Blood Urea Nitrogen 12 mg/dL (7-18) Creatinine 0.8 mg/dL (0.5-1.0) Glomerular Filtration Rate Calc 88 mL/min (>90) Random Glucose 327 mg/dL (70-105) H Total Calcium 9.5 mg/dL (8.5-10.1) Total Bilirubin 0.3 mg/dL (0.2-1.0) Direct Bilirubin 0.1 mg/dL (0.0-0.3) Aspartate Amino Transf (AST/SGOT) 25 U/L (10-37) Alanine Aminotransferase (ALT/SGPT) 27 U/L (12-78) Alkaline Phosphatase 111 U/L (50-136) Total Creatine Kinase 49 U/L (21-232) # Troponin I High Sensitivity < 4.0 ng/L (4-50) L Total Protein 8.0 g/dL (6.0-8.3) Albumin 3.8 g/dL (3.5-5.0) Lipase 34 U/L (16-77) REASON: Adominal Pain ORDERING PHYSICIAN: LUIS FELIPE CARLSON PROCEDURE: [id number] - US ABDOMINAL RUQ\LTD ULTRASOUND ABDOMEN LIMITED INDICATION: Right upper abdominal pain COMPARISON: 12/03/2023 CT abdomen and pelvis FINDINGS: The liver is normal in size and increased in echogenicity; no focal lesion demonstrated. Main portal vein is patent, and normal direction of vascular flow demonstrated. The common bile duct diameter measures 4.0 mm. Several echogenic shadowing stones within the gallbladder lumen without associated pericholecystic fluid. No sonographic Cheney's sign elicited by the ultrasound brazing machine operator automatic. Wall thickness measures 2.0 mm. Visible portions of the pancreas appear normal. The right kidney measures 8.3 x 4.0 x 4.2 cm,and is normal in echogenicity, without evidence for hydronephrosis.No shadowing stones demonstrated. No free fluid demonstrated. IMPRESSION: Cholelithiasis without cholecystitis. Findings suggesting hepatic steatosis. Labs Reviewed?: Yes EKG: (+) rhythm (Sinus rhythm) EKG Comment: Date:01/05/2025 Time:2018 Ventricular rate:82 IN interval:135 QRS duration:78 QT/QTc:380 EKG interpretation: Sinus rhythm Reviewed by ED Attending no STEMI ED Course ED Course Orders Procedure Category Date Status Time Cbc With Differential LAB 01/05/25 Complete 19:46 Urinalysis Profile LAB 01/05/25 Complete 19:46 Us Abdominal Ruq\Ltd US 01/05/25 Resulted 19:46 12 Lead Ekg Tracing- EKG 01/05/25 Logged Technical 19:46 0.9%Nacl 1000ml (Ns PHA 01/05/25 Complete 1000ml) 20:00 Morphine 4mg Syg PHA 01/05/25 Complete (Morphine 4mg Syg) 20:00 Ondansetron 4mg Inj PHA 01/05/25 Complete (Zofran 4mg Inj) 20:00 Lipase LAB 01/05/25 Complete 19:46 Basic Metabolic Panel LAB 01/05/25 Complete 19:46 Hepatic Function Panel LAB 01/05/25 Complete 19:46 Cardiac Panel LAB 01/05/25 Complete 19:46 Culture Urine GEORGE 01/05/25 Logged 20:39 Ceftriaxone 1g Vial PHA 01/05/25 Complete (Rocephine 1g Inj) 21:00 Current Medications Medications (Trade) Dose Ordered Sig/Dwight Route PRN Reason Start Time Stop Time Status Last Admin Dose Admin Ceftriaxone Sodium (ROCEphine 1G INJ) 1 gm ONCE ONCE IVPB 01/05/25 21:00 01/05/25 21:03 DC 01/05/25 21:16 Morphine Sulfate (morPHINE 4MG SYG) 4 mg ONCE ONCE IVP 01/05/25 20:00 01/05/25 20:01 DC 01/05/25 21:08 Ondansetron HCl (zoFRAN 4MG INJ) 4 mg ONCE ONCE IVP 01/05/25 20:00 01/05/25 20:01 DC 01/05/25 20:57 Sodium Chloride 1,000 ml @ 0 mls/hr ONCE ONCE IV 01/05/25 20:00 01/05/25 20:01 DC 01/05/25 20:57 Vital Signs Date Time Temp Pulse Resp B/P (MAP) Pulse Ox O2 Delivery O2 Flow Rate FiO2 01/05/25 21:11 78 18 120/72 98 Room Air* 0 21 01/05/25 19:56 97.5 85 20 106/73 97 Room Air Medical Decision Making MDM The patient is a 54-year-old female with a history of diabetes, gallstones who presents to the emergency department with complaints of right upper abdominal pain associated with nausea nonbloody vomiting onset 11:00 a.m. today. Patient denies any diarrhea or constipation. Denies any fevers. Patient also reported she developed a rash on December 31 two her bilateral lower legs and now has it on her right upper arm. Reports itchiness. CBC showed no leukocytosis, mild normocytic anemia,, chemistry showed elevated blood sugar, no DKA, negative troponin, negative lipase, urinalysis positive for leukocyte esterase, nitrites patient will be treated with Rocephin for UTI and sent home with the antibiotics. Ultrasound revealed cholelithiasis. Without cholecystitis. Patient in no acute distress will be discharged to follow up with primary doctor. Differential diagnosis: Gastroenteritis, cholecystitis, cholelithiasis, UTI, allergic reaction Need for hospitalization: Patient does not meet criteria for hospitalization. There are no social concerns with this patient. DX & DISP Disposition: Discharge Departure Impression: Primary Impression: Cholelithiasis Additional Impressions: Biliary colic, UTI (urinary tract infection), Rash, Uncontrolled diabetes mellitus with hyperglycemia Condition: Stable Scripts Nitrofurantoin Monohyd/M-Cryst (Macrobid 100 mg Capsule) 100 Mg Capsule 1 CAP PO BID for 5 Days, #10 CAP 0 Refills Prov: LUIS FELIPE CARLSON 01/05/25 Additional Instructions: Please follow up with the primary doctor in 1-2 days. If symptoms worsen please return to ER. Avoid any foods that exacerbate your pain. Take antibiotics as prescribed. You may apply [id number] hydrocortisone to your rash to help with discomfort. FOLLOW-UP WITH PRIMARY CARE PROVIDER IN 1 TO 2 DAYS. TAKE MEDICATIONS DIRECTED HERE IN THE EMERGENCY ROOM. OKAY TO CONTINUE HOME MEDICATIONS UNLESS OTHERWISE DISCUSSED DURING YOUR VISIT IN THE EMERGENCY ROOM TODAY. RETURN TO YOUR NEAREST EMERGENCY ROOM IF SYMPTOMS WORSEN OR IF THERE IS NO IMPROVEMENT. CALL 911 IF YOU NEED IMMEDIATE ASSISTANCE. TAKE TYLENOL OR MOTRIN [id number] NEEDED AND IF NO CONTRAINDICATIONS ARE PRESENT. INCREASE ORAL HYDRATION. A WOUND CULTURE OR URINE CULTURE WAS ORDERED HERE IN THE EMERGENCY ROOM DEPARTMENT PLEASE FOLLOW-UP WITH PRIMARY CARE PROVIDER AND ADVISE THEM TO GET REPEAT PORTS FROM OUR FACILITY. IF YOU HAD ANY LESVIA WRAP/SPLINTS THAT WERE APPLIED HERE, PLEASE DO NOT REMOVE THEM UNTIL YOU SEE YOUR PRIMARY CARE OR SPECIALTY. Referrals: KELLI BARNES (PCP) Time of Disposition: 21:23 I have reviewed the case, and I agree with, Diagnosis and Plan LUIS FELIPE CARLSON Jan 05, 2025 20:04
--- NOTE | 2025-01-05 20:26 | HMCIMG ---
ULTRASOUND ABDOMEN LIMITED INDICATION: Right upper abdominal pain COMPARISON: 12/03/2023 CT abdomen and pelvis FINDINGS: The liver is normal in size and increased in echogenicity; no focal lesion demonstrated. Main portal vein is patent, and normal direction of vascular flow demonstrated. The common bile duct diameter measures 4.0 mm. Several echogenic shadowing stones within the gallbladder lumen without associated pericholecystic fluid. No sonographic Cheney's sign elicited by the ultrasound swing frame grinder operator. Wall thickness measures 2.0 mm. Visible portions of the pancreas appear normal. The right kidney measures 8.3 x 4.0 x 4.2 cm,and is normal in echogenicity, without evidence for hydronephrosis.No shadowing stones demonstrated. No free fluid demonstrated. IMPRESSION: Cholelithiasis without cholecystitis. Findings suggesting hepatic steatosis.
[2025-01-05 20:36] LABS: BASOPHILS # (AUTO) 0.02 K/uL (0.00-0.20); BASOPHILS % (AUTO) 0.2 % (0.0-5.0); EOSINOPHILS % (AUTO) 4.8 % (0.0-8.0); HEMATOCRIT 36.7 % (36-48); IMMATURE GRANULOCYTE ABSOLUTE 0.03 K/uL (0-1); LYMPHOCYTES # (AUTO) 2.2 K/uL (1.0-4.8); LYMPHOCYTES % (AUTO) 25.7 % (21.0-51.0); MEAN CORPUSCULAR HEMOGLOBIN 29.1 pg (27.0-33.0); MEAN CORPUSCULAR HGB CONC 32.2 g/dL (32.0-36.0); MEAN CORPUSCULAR VOLUME 90.4 fL (79-99); MONOCYTES # (AUTO) 0.5 K/uL (0.1-1.0); MONOCYTES % (AUTO) 5.7 % (3.0-13.0); NEUTROPHILS # (AUTO) 5.3 K/uL (1.8-7.7); NEUTROPHILS % (AUTO) 63.2 % (40.0-77.0); PLATELET COUNT (AUTO) 281 K/uL (130-400); RED BLOOD CELL COUNT(AUTO) 4.06 MIL/uL (4.00-5.50); RED CELL DISTRIBUTION WIDTH 13.8 % (11.0-15.5); WHITE BLOOD COUNT (AUTO) 8.4 K/uL (4.8-10.8)
[2025-01-05 20:38] LABS: ADD UA MICROSCOPIC YES; APPEARANCE,URINE CLEAR (CLEAR); BILIRUBIN,URINE NEGATIVE (NEGATIVE); COLOR,URINE LIGHT-YELLOW (YELLOW); GLUCOSE, URINE (UA) >=1000 mg/dL (NEGATIVE); KETONES,URINE NEGATIVE (NEGATIVE); LEUKOCYTE ESTERASE ,URINE 75 Leu/uL (NEGATIVE); NITRATE,URINE 2+ (NEGATIVE); OCCULT BLOOD,URINE NEGATIVE (NEGATIVE); PH,URINE 6.5 (5.0-8.0); PROTEIN,URINE NEGATIVE (NEGATIVE)
[2025-01-05 20:41] LABS: MUCUS,URINE RARE LPF (None Seen); RBC,URINE 0-1 /HPF (0-1); SQUAMOUS EPITHELIAL CELL,UR RARE /HPF (0-2)
[2025-01-05 20:47] LABS: CARBON DIOXIDE 32 mmol/L (21-32); CHLORIDE 97 mmol/L (101-111); CREATININE 0.8 mg/dL (0.5-1.0); GLOMERULAR FILTR. RATE CALC 88 mL/min (>90); GLUCOSE,RANDOM 327 mg/dL (70-105); POTASSIUM 4.2 mmol/L (3.5-5.1); SODIUM SERUM 136 mmol/L (136-145); UREA NITROGEN, BLOOD 12 mg/dL (7-18)
[2025-01-05 20:54] LABS: ALANINE AMINOTRANSFERASE 27 U/L (12-78); ALBUMIN 3.8 g/dL (3.5-5.0); ASPARTATE AMINOTRANSFERASE 25 U/L (10-37); BILIRUBIN,DIRECT 0.1 mg/dL (0.0-0.3); BILIRUBIN,TOTAL 0.3 mg/dL (0.2-1.0); CREATINE KINASE, TOTAL 49 U/L (21-232)
[2025-01-05] MEDS: 0.9%NACL 1000ML 1,000 ML IV ONE (20:57)
[2025-01-05] MEDS: ondanSETRON 4MG INJ IVP ONE (20:57)
[2025-01-05] MEDS: morPHINE 4 MG SYG IVP ONE (21:08)
[2025-01-05] MEDS: cefTRIAXone 1G VIAL IVPB ONE (21:16)
[2025-01-05] MEDS ORDERED: NITR100C4 PO (21:24)
[2025-01-05 22:44] VITALS: BP 129/74; PULSE 74; RESP 18; TEMP 97.5; O2SAT 96
--- NOTE | 2025-01-06 08:12 | EKG ---
[facility] Test Date: 2025-01-05 Test Time: 20:19:43 Pat Name: ISELA WANG Department: ED Room: Gender: Female Commercial Technician: [id number] : 1970 Requested By: LUIS FELIPE CARLSON Order Number: [id number] Reading MD: Measurements Intervals [place] Rate: 82 P: 8 SC: 135 QRS: 19 QRSD: 78 T: 14 QT: 380 QTc: 443 Interpretive Statements Sinus rhythm No previous ECG available for comparison Please click the below link to view image of tracing.
== END 2025-01-05 22:44 | disposition home or self-care (01) ==
LOC: EDH 19:24
DX: K80.70 Calculus of gallbladder and bile duct without cholecystitis without obstruction (principal); N39.0 Urinary tract infection, site not specified; E11.65 Type 2 diabetes mellitus with hyperglycemia; R21 Rash and other nonspecific skin eruption; R11.2 Nausea with vomiting, unspecified; E11.40 Type 2 diabetes mellitus with diabetic neuropathy, unspecified; Z90.49 Acquired absence of other specified parts of digestive tract; Z91.012 Allergy to eggs; Z79.899 Other long term (current) drug therapy
CPT/HCPCS: 99285; 96365; 76705; 96375; 82550; 80076; 84484; 80048; 83690; 85025; 87086; 81001; 36415; 93005; J7030; J0696; J2405; J2270

== ENCOUNTER 2025-01-29 12:34 | Emergency (ER) | payer BC ==
[~2025-01-29] VITALS: Ht 160 cm; Wt 81.6 kg
[~2025-01-29 12:34] MED LIST changes: +NITR100C4 PO
[2025-01-29] MEDS: ketOROlac 15MG/ML VIAL (15MG/ML) IM ONE (13:25)
[2025-01-29] MEDS: acetaMINOPHEN 500 MG TABLET PO ONE (13:25)
[2025-01-29] MEDS: LIDOCAINE 4% ADH..PATCH TP ONE (13:25)
--- NOTE | 2025-01-29 14:37 | ERN ---
General Chief Complaint: Hip Pain/Injury Stated Complaint: BODY PAIN Time Seen by MD: 12:35 History of Present Illness Initial Comments 55-year-old female presents for back pain for the last four days. She reports she was had on and off pains in the past similar to this. She has been taking gabapentin with minimal relief. The pain is located in the lower lumbar region, it is around L4-L5 midline as well as to the right paraspinal area. No shooting pains. No systemic illness. No urinary retention or incontinence. Ambulatory although antalgic. She denies trauma. Allergies: Coded Allergies: egg (Unverified Allergy, Unknown, 09/08/15) VOMITS Home Meds Active Scripts Acetaminophen with Codeine (Acetaminophen-Cod #3 Tablet) 300 Mg-30 Mg Tablet, 1 TAB PO Q6HPRN PRN for pain for 7 Days, #28 TAB 0 Refills Prov:JONNY NICHOLE DO 01/29/25 Lidocaine (Lidocaine Pain Relief) 4 % Adh..patch, 1 EACH TP BID PRN for PAIN for 10 Days, #10 ADH.PATCH Prov:JONNY NICHOLE DO 01/29/25 Meloxicam (Meloxicam) 15 Mg Tablet, 15 MG PO DAILY PRN for PAIN for 10 Days, #10 TAB Prov:JONNY NICHOLE DO 01/29/25 Nitrofurantoin Monohyd/M-Cryst (Macrobid 100 mg Capsule) 100 Mg Capsule, 1 CAP PO BID for 5 Days, #10 CAP 0 Refills Prov:LUIS FELIPE CARLSON PROMOTIONS MANAGER 01/05/25 Metronidazole (Metronidazole) 500 Mg Tablet, 1 TAB PO BID for 7 Days, #14 TAB 0 Refills Prov:CONNER NUÑEZ 10/02/24 Ibuprofen (Ibuprofen 800 mg Tab) 800 Mg Tab, 800 MG PO Q8H PRN for fever or pain, #30 TAB 0 Refills Prov:IDALIA FERGUSON NP 05/26/24 Clindamycin HCl (Clindamycin HCl) 300 Mg Capsule, 1 CAP PO QID for 10 Days, #40 CAP 0 Refills Prov:IDALIA FERGUSON NP 05/26/24 Lidocaine (Lidoderm Patch 5%) 5 % Patch, 1 PATCH TP DAILY for pain for 7 Days, #7 ADH.PATCH 1 Refill 12 hours on/12 hours off localized area of pain Prov:HECTOR DANIEL 11/15/23 Cyclobenzaprine HCl (Cyclobenzaprine HCl) 10 Mg Tablet, 10 MG PO HS PRN for MUSCLE SPASMS, #7 TAB Prov:HECTOR DANIEL 11/15/23 Ibuprofen (Ibuprofen 800 mg Tab) 800 Mg Tab, 800 MG PO Q8H PRN for fever or pain for 7 Days, #12 TAB 0 Refills Prov:HECTOR DANIEL 11/15/23 Nitrofurantoin/Nitrofuran Mac (Macrobid) 100 Mg Cap, 1 CAP PO BID for 7 Days, #14 CAP 0 Refills Prov:HECTRO DANIEL 11/15/23 Sulfamethoxazole/Trimethoprim (Bactrim Ds Tablet) 1 Each Tablet, 1 TAB PO BID for 7 Days, #14 TAB 0 Refills Prov:RAQUEL GOVEA V PROMOTIONS MANAGER 10/21/22 Cephalexin Monohydrate (Keflex) 500 Mg Cap, 500 MG PO QID for 7 Days, #28 CAP Prov:RAQUEL GOVEA V PROMOTIONS MANAGER 10/21/22 D-Methorphan/PE/Acetaminophen (Theraflu Ms Severe Cold Pckt) 1 Each Powd.pack, 1 EACH PO QIDP, #20 PACK Prov:CAMMY COLEMAN 01/17/22 Past Medical History Past Medical History: Diabetes-Type II, Gallstones Medical History Other: NEUROPATHY Past Surgical History: Appendectomy Family History Family History: Negative Social History Social History: Negative Female( History) History: Not Applicable ROS Dictation CONSTITUTIONAL: No chills, no fever, no weakness, no diaphoresis, no malaise. HEAD/FACE: No signs of trauma. EENT: No eye pain, no blurred vision, no tearing, no double vision, no ear pain, no ear discharge, no nose pain, no nasal congestion, no throat pain, no throat swelling, no mouth pain. RESPIRATORY: No cough, no orthopnea, no SOB, no stridor, no wheezing. CARDIOVASCULAR: No chest pain, no edema, no palpitations, no syncope. GASTROINTESTINAL/ABDOMINAL: No abdominal pain, no constipation, no diarrhea, no nausea, no vomiting. GENITOURINARY: No abnormal discharge, no dysuria, no frequent urination, no hematuria. No complaints of pain in the genitals. MUSCULOSKELETAL: Lower back pain INTEGUMENTARY: No change in color, no change in hair/nails, no dryness, no lesion, no lumps, no rash. NEUROLOGICAL/PSYCH: No anxiety, not depressed, no emotional problem, no headache, no numbness, no pre-existing deficit, no history of seizures, no tremors, no weakness. HEMATOLOGIC/LYMPHATIC: Not anemic, no history of blood clots, no apparent bleeding, no bruising, glands not swollen. All Systems Negative, Except as Noted. Physical Exam Physical Exam Dictation VITAL SIGNS: Reviewed. GENERAL APPEARANCE: Alert, oriented x3, no acute distress, obese HEAD AND FACE: Non-traumatic. EYES: PERRL, pink conjunctivas, eyelid no trauma, anterior chamber clear. EARS: Pinnas intact and no signs of trauma or erythema. Ear canals clear and no discharge. TMs no erythema. NOSE: No discharge, no bleeding. OROPHARYNX: Mouth normal, teeth no caries, tongue pink. Pharynx clear, no erythema. Tonsils no exudates, no abscesses noted. Mucous membrane moist. NECK: Supple, non-tender, no thyromegaly, no masses, no JVD, no bruits. BREAST: Deferred. CHEST: No tenderness, no crepitus, no paradoxical movement, no retractions. LUNGS: Clear, well-ventilated, symmetric, no rales, no wheezing, no rhonchi, no stridor, good breath sounds bilaterally. HEART: Regular rate, regular rhythm, no murmur, no gallops. VASCULAR: No peripheral edema. ABDOMEN: Soft, positive bowel sounds, nondistended, no guarding, nontender, no rebound, no masses no hepatomegaly, no splenomegaly, no Cheney's sign, no hernias. RECTAL: Deferred. GENITAL: Deferred. NEUROLOGICAL: Normal speech, gross motor function intact, gross sensory function intact. MUSCULOSKELETAL: Neck nontender, full range of motion, back nontender, full range of motion. EXTREMITIES: Nontender, full range of motion. SKIN: Color pink, dry, no turgor, no rash, no lacerations, no abrasions, no contusions. LYMPHATICS: Deferred. MDM CC: Lower back pain Historian: Patient Comorbidities: Chronic back Limitations by social determinants of health: None Differential diagnosis: Musculoskeletal pain, fracture, AAA, cauda equina, abscess, infection, other vital signs are stable On clinical exam she was pain to the L5 area, there is some midline pain so we will get an x-ray. No neurologic deficits able to flex and extend the ankles knees and hips able to cross the legs normal sensation throughout no anesthesias no fevers. Low suspicion for any infectious process, significant pathology such as a AAA or cauda equina. Symptoms most consistent with musculoskeletal type pain. The x-ray does show some degenerative disc disease in the L5-S1 area which is consistent with her symptoms. No obvious masses. She was ambulatory. Given Toradol lidocaine patch pain control here in the ER. We will DC with prescriptions for pain control and recommend PCP follow up. ED Course Orders Procedure Category Date Status Time Ketorolac PHA 01/29/25 Complete Tromethamine 15mg/Ml 13:30 Acetaminophen 500mg PHA 01/29/25 Complete Tab (Tylenol 500mg T 13:30 Lidocaine (Lidocaine PHA 01/29/25 Complete Patch 4%) 13:30 Lumbar Spine 2-3vws RAD 01/29/25 Resulted 14:32 Pelvis 1-2vws RAD 01/29/25 Resulted 14:32 Current Medications Medications (Trade) Dose Ordered Sig/Dwight Route PRN Reason Start Time Stop Time Status Last Admin Dose Admin Acetaminophen (TYLenol 500MG TAB) 1,000 mg ONCE ONCE PO 01/29/25 13:30 01/29/25 13:31 DC 01/29/25 13:25 Ketorolac Tromethamine (toRADol) 15 mg ONCE ONCE IM 01/29/25 13:30 01/29/25 13:31 DC 01/29/25 13:25 Lidocaine (Lidocaine Patch 4%) 1 each ONCE ONCE TP 01/29/25 13:30 01/29/25 13:31 DC 01/29/25 13:25 Vital Signs Date Time Temp Pulse Resp B/P (MAP) Pulse Ox O2 Delivery O2 Flow Rate FiO2 01/29/25 16:05 97.7 74 18 132/67 98 Room Air* 0 21 01/29/25 12:48 98.6 79 18 114/70 98 Room Air 0 DX & DISP Disposition: Discharge Departure Impression: Primary Impression: Lower back pain Additional Impression: Degenerative disc disease at L5-S1 level Condition: Stable Scripts Acetaminophen with Codeine (Acetaminophen-Cod #3 Tablet) 300 Mg-30 Mg Tablet 1 TAB PO Q6HPRN PRN for pain for 7 Days, #28 TAB 0 Refills Prov: JONNY NICHOLE DO 01/29/25 Lidocaine (Lidocaine Pain Relief) 4 % Adh..patch 1 EACH TP BID PRN for PAIN for 10 Days, #10 ADH.PATCH Prov: JONNY NICHOLE DO 01/29/25 Meloxicam (Meloxicam) 15 Mg Tablet 15 MG PO DAILY PRN for PAIN for 10 Days, #10 TAB Prov: JONNY NICHOLE DO 01/29/25 Additional Instructions: You have degenerative disc disease on your x-ray. This is similar to arthritis. You have it at the L5/S1 level. The rest of the x-ray of your lower lumbar spine and pelvis is unremarkable. I have prescribed meloxicam, which is an anti-inflammatory pain medication. Take this once per day for the next week. I have prescribed Tylenol with codeine to use for significant pain. You can ta ke 1-2 tabs every 6 hours as needed. I also recommend lidocaine patches or a heating pad. Please follow up with the primary doctor. You may need further studies or treatment. Referrals: KELLI BARNES (PCP) JONNY NICHOLE DO Jan 29, 2025 14:37
--- NOTE | 2025-01-29 15:31 | HMCIMG ---
Exam Type: LUMBAR SPINE 2-3VWS Clinical Information: pain Comparison: None Findings: Exam of the lumbosacral spine demonstrates no evidence of fracture, subluxation. There are spondylitic changes and there are degenerative changes of the facet joints. There is straightening of the spine consistent with spasm. The other disc spaces are intact. Bone mineralization is normal. There is evidence of degenerative disc disease with disc space narrowing involving L5-S1. Impression: Degenerative disc disease suspected as noted. Other degenerative and chronic changes as noted.
--- NOTE | 2025-01-29 15:31 | HMCIMG ---
Exam Type: PELVIS 1-2VWS Clinical Information: pain Comparison: None Findings: The bone examination is unremarkable. No fractures or dislocations are seen. No radiopaque foreign bodies are noted. Soft tissues are preserved. IMPRESSION: Normal examination.
[2025-01-29] MEDS ORDERED: MELO-108 PO (15:41)
[2025-01-29] MEDS ORDERED: LIDO1ADH71 TP (15:41)
[2025-01-29] MEDS ORDERED: ACET-2079 PO (15:41)
[2025-01-29 16:05] VITALS: BP 132/67; PULSE 74; RESP 18; TEMP 97.7; O2SAT 98
== END 2025-01-29 16:19 | disposition home or self-care (01) ==
LOC: EDH 12:34
DX: M47.817 Spondylosis without myelopathy or radiculopathy, lumbosacral region (principal); E11.9 Type 2 diabetes mellitus without complications; Z79.899 Other long term (current) drug therapy; Z91.012 Allergy to eggs; Z90.49 Acquired absence of other specified parts of digestive tract
CPT/HCPCS: 99284; 72100; 72170; 96372; J1885